=== PATIENT | female | born 1950 | race Caucasian/White ===

== ENCOUNTER → 2018-08-01 | Outpatient (REF) | payer OTHER ==
[2018-08-01 14:05] LABS: ERYTHROCYTE SEDIMENTATION RATE 9 mm/hr (0-30)
[2018-08-01 14:14] LABS: FREE T4 1.14 NG/DL (0.76-1.46); RHEUMATOID FACTOR QUANT < 10.0 IU/ML (<15.0); TOTAL PROTEIN 7.1 GM/DL (6.4-8.2)
[2018-08-01 14:15] LABS: VITAMIN B12 LEVEL > 2000 PG/ML
[2018-08-01 14:16] LABS: FOLATE 22.5 NG/ML
[2018-08-06 13:10] LABS: ALBUMIN % 56.4 % (55.8-66.1); ALPHA-1-GLOBULIN % 4.2 % (2.9-4.9); ALPHA-2-GLOBULINS 0.82 GM/DL (0.42-0.99)
[2018-08-06 13:11] LABS: ALPHA-2-GLOBULINS % 11.5 % (7.1-11.8); BETA-1-GLOBULINS 0.48 GM/DL (0.28-0.60); BETA-1-GLOBULINS % 6.8 % (4.7-7.2); BETA-2-GLOBULINS 0.53 GM/DL (0.19-0.55); BETA-2-GLOBULINS % 7.4 % (3.2-6.5); GAMMA GLOBULIN % 13.7 % (11.1-18.8); GAMMA GLOBULINS 0.97 GM/DL (0.65-1.58)
== END ==
LOC: M LABNEURO 09:59
DX: I67.82 Cerebral ischemia (principal); G37.9 Demyelinating disease of central nervous system, unspecified
CPT/HCPCS: 82746